=== PATIENT | male | born 1950 | race Caucasian/White ===

== ENCOUNTER 2021-11-21 17:28 | Inpatient (IN) | payer MEDICARE ==
[~2021-11-21] VITALS: Ht 180.3 cm; Wt 90.7 kg
[2021-11-21 17:57] LABS: BASOPHILS # (AUTO) 0.1 (0.0-0.1); BASOPHILS % 0.4 % (0.0-1.0); EOSINOPHILS # (AUTO) 0.6 (0.0-0.4); EOSINOPHILS % 2.6 % (0.0-6.0); HEMATOCRIT 43.8 % (38.2-49.6); HEMOGLOBIN 13.9 g/dL (14.0-18.0); LYMPHOCYTES # (AUTO) 1.6 (1.0-3.2); LYMPHOCYTES % 7.2 % (18.0-39.1); MEAN CORPUSCULAR HEMOGLOBIN 31.3 pg (28-32); MEAN CORPUSCULAR HGB CONC 31.7 g/dL (31-35); MEAN CORPUSCULAR VOLUME 98.6 fL (81-99); MONOCYTES # (AUTO) 2.2 (0.2-0.8); MONOCYTES % 10.3 % (4.4-11.3); NEUTROPHILS # (AUTO) 17.2 (2.1-6.9); NEUTROPHILS % 78.7 % (38.7-80.0); PLATELET COUNT 459 x10e3/uL (140-360); RED BLOOD COUNT 4.44 x10e6/uL (4.3-5.7); RED CELL DISTRIBUTION WIDTH 12.1 % (11.7-14.4)
[2021-11-21 18:13] LABS: ALBUMIN 2.7 g/dL (3.5-5.0); ALBUMIN/GLOBULIN RATIO 0.5 (0.8-2.0); ANION GAP 21.1 mmol/L (8-16); CALCIUM 9.3 mg/dL (8.4-10.2); CREATININE, SERUM 1.59 mg/dL (0.72-1.25); POTASSIUM 4.1 mmol/L (3.5-5.1)
[2021-11-21] MEDS ORDERED: SODIUM CHLORIDE 0.9% 1000ML 1,000 ML IV STA (19:09)
[2021-11-21] MEDS ORDERED: ASPIRIN 81 MG CHEW TAB PO ONE (19:15)
[2021-11-21 19:41] LABS: CREATINE KINASE MB 0.5 ng/mL (0-5.0)
[2021-11-21] MEDS ORDERED: Morphine 4mg INJECTION 4 MG/ML INJ IV PRN (20:15)
[2021-11-21] MEDS ORDERED: ONDANSETRON HCL INJ 2MG/ML 2ML 2 MG/ML VIAL IV PRN (20:15)
[2021-11-21] MEDS ORDERED: SODIUM CHLORIDE 0.9% 1000ML 1,000 ML IV ONE (20:30)
[2021-11-21] MEDS ORDERED: ACETAMINOPHEN 325 MG TAB PO ONE (20:30)
[2021-11-21] MEDS ORDERED: ACETAMINOPHEN 325 MG TAB ONE (20:36)
[2021-11-21] MEDS ORDERED: SODIUM CHLORIDE 0.9% 100 ML ONE (22:17)
[2021-11-21] MEDS ORDERED: IOPAMIDOL 370 MG/ML 100 ML INFUS..BTL INJ ONE (22:17)
[2021-11-21] MEDS: SODIUM CHLORIDE 0.9% 1000ML 1,000 ML IV SCH (22:19)
[2021-11-21 23:13] LABS: CLARITY,URINE CLEAR (CLEAR); COLOR,URINE YELLOW (YELLOW); LEUKOCYTE ESTERASE ,URINE NEGATIVE (NEGATIVE)
[2021-11-21 23:14] LABS: KETONES,URINE TRACE (NEGATIVE); NITRITE,URINE NEGATIVE (NEGATIVE); PROTEIN,URINE DIPSTICK 1+ (NEGATIVE)
[2021-11-21 23:17] LABS: BACTERIA,URINE FEW /HPF; EPITHELIAL CELLS,URINE FEW /LPF; RBC,URINE 0-5 /HPF (0-5); WBC,URINE (MAN) 0-5 /HPF (0-5)
[2021-11-21] MEDS ORDERED: ACETAMINOPHEN 325 MG TAB PO PRN (23:45)
[2021-11-22] VITALS (8 sets, daily range): BP systolic 105–134; BP diastolic 63–74
[2021-11-22] MEDS ORDERED: ACETAMINOP325 MG/10 PO (00:17)
[2021-11-22] MEDS ORDERED: AMIODARONE HCL200 MG PO (00:18)
[2021-11-22] MEDS ORDERED: ATORVASTATIN CA20 MG PO (00:19)
[2021-11-22] MEDS ORDERED: ASPIRIN81 MG PO (00:19)
[2021-11-22] MEDS ORDERED: NEURONTIN300 MG PO (00:20)
[2021-11-22] MEDS ORDERED: CLOPIDOGREL75 MG PO (00:20)
[2021-11-22] MEDS ORDERED: ISOSORBIDE MONO30 MG PO (00:20)
[2021-11-22] MEDS ORDERED: LISINOPRIL10 MG PO (00:21)
[2021-11-22] MEDS ORDERED: METOPROLOL SUCC25 MG PO (00:22)
[2021-11-22] MEDS ORDERED: B1 PO (00:22)
[2021-11-22 01:15] LABS: CREATINE KINASE MB 0.6 ng/mL (0-5.0)
[2021-11-22] MEDS: SODIUM CHLORIDE 0.9% 1000ML 1,000 ML IV SCH ×2 (05:28→19:46)
[2021-11-22 05:45] LABS: BASOPHILS # (AUTO) 0.1 (0.0-0.1); BASOPHILS % 0.6 % (0.0-1.0); EOSINOPHILS # (AUTO) 0.7 (0.0-0.4); EOSINOPHILS % 3.7 % (0.0-6.0); HEMATOCRIT 44.2 % (38.2-49.6); HEMOGLOBIN 13.5 g/dL (14.0-18.0); LYMPHOCYTES % 11.1 % (18.0-39.1); MEAN CORPUSCULAR HEMOGLOBIN 31.5 pg (28-32); MEAN CORPUSCULAR HGB CONC 30.5 g/dL (31-35); MONOCYTES % 11.3 % (4.4-11.3); NEUTROPHILS # (AUTO) 12.9 (2.1-6.9); NEUTROPHILS % 72.8 % (38.7-80.0); PLATELET COUNT 329 x10e3/uL (140-360); RED BLOOD COUNT 4.29 x10e6/uL (4.3-5.7); RED CELL DISTRIBUTION WIDTH 12.2 % (11.7-14.4)
[2021-11-22 06:03] LABS: ALBUMIN 2.2 g/dL (3.5-5.0); ALBUMIN/GLOBULIN RATIO 0.5 (0.8-2.0); ANION GAP 17.3 mmol/L (8-16); CALCIUM 8.4 mg/dL (8.4-10.2); CREATININE, SERUM 1.34 mg/dL (0.72-1.25); POTASSIUM 4.3 mmol/L (3.5-5.1)
[2021-11-22 13:05] LABS: CREATINE KINASE MB 0.9 ng/mL (0-5.0)
[2021-11-22] MEDS ORDERED: Vancomycin IV 1 GM in SODIUM CHLORIDE 0.9% 250ML 250 ML IV ONE (13:45)
[2021-11-22 14:33] LABS: THYROID STIMULATING HORMONE 0.321 uIU/mL (0.350-4.940)
[2021-11-22] MEDS: GABAPENTIN 300 MG CAP PO SCH ×2 (15:16→20:10)
[2021-11-22] MEDS: ATORVASTATIN 40 MG TAB PO SCH (15:17)
[2021-11-22] MEDS: METOPROLOL SUCCINATE 25 MG TAB XL PO SCH (15:17)
[2021-11-22] MEDS: CLOPIDOGREL BISULFATE 75 MG TAB PO SCH (15:17)
[2021-11-22] MEDS: AMIODARONE HCL 200 MG TAB PO SCH (15:18)
[2021-11-22] MEDS: ISOSORBIDE MONONITRATE 30 MG TAB CR PO SCH (15:18)
[2021-11-22] MEDS: ENOXAPARIN SOD INJ 40 MG/0.4 ML SYR SC SCH (17:42)
[2021-11-22 20:33] LABS: CREATINE KINASE MB 1.3 ng/mL (0-5.0)
[2021-11-23] VITALS (8 sets, daily range): BP systolic 116–143; BP diastolic 66–79
[2021-11-23] MEDS: SODIUM CHLORIDE 0.9% 1000ML 1,000 ML IV SCH ×3 (00:10→06:43)
[2021-11-23 06:36] LABS: BASOPHILS # (AUTO) 0.1 (0.0-0.1); BASOPHILS % 0.6 % (0.0-1.0); EOSINOPHILS # (AUTO) 0.6 (0.0-0.4); EOSINOPHILS % 3.1 % (0.0-6.0); HEMATOCRIT 33.9 % (38.2-49.6); HEMOGLOBIN 11.2 g/dL (14.0-18.0); LYMPHOCYTES # (AUTO) 1.6 (1.0-3.2); LYMPHOCYTES % 8.5 % (18.0-39.1); MEAN CORPUSCULAR HEMOGLOBIN 31.5 pg (28-32); MEAN CORPUSCULAR VOLUME 95.2 fL (81-99); MONOCYTES % 10.9 % (4.4-11.3); NEUTROPHILS # (AUTO) 14.2 (2.1-6.9); NEUTROPHILS % 76.2 % (38.7-80.0); PLATELET COUNT 353 x10e3/uL (140-360); RED BLOOD COUNT 3.56 x10e6/uL (4.3-5.7); RED CELL DISTRIBUTION WIDTH 12.2 % (11.7-14.4)
[2021-11-23 07:15] LABS: ANION GAP 11.3 mmol/L (8-16); CALCIUM 7.4 mg/dL (8.4-10.2); CREATININE, SERUM 1.09 mg/dL (0.72-1.25); POTASSIUM 4.3 mmol/L (3.5-5.1)
[2021-11-23] MEDS: CEFTRIAXONE 2 GM in SODIUM CHLORIDE 0.9% 100 ML IV SCH (08:45)
[2021-11-23] MEDS: ASPIRIN 81 MG CHEW TAB PO SCH (08:45)
[2021-11-23] MEDS: AMIODARONE HCL 200 MG TAB PO SCH (08:46)
[2021-11-23] MEDS: ATORVASTATIN 40 MG TAB PO SCH (08:46)
[2021-11-23] MEDS: GABAPENTIN 300 MG CAP PO SCH ×3 (08:46→21:35)
[2021-11-23] MEDS: METOPROLOL SUCCINATE 25 MG TAB XL PO SCH (08:47)
[2021-11-23] MEDS: ISOSORBIDE MONONITRATE 30 MG TAB CR PO SCH (08:48)
[2021-11-23] MEDS: CLOPIDOGREL BISULFATE 75 MG TAB PO SCH (08:48)
[2021-11-23] MEDS ORDERED: ISOSORBIDE MONONITRATE 30 MG TAB CR PO SCH (09:00)
[2021-11-23] MEDS ORDERED: METOPROLOL SUCCINATE 25 MG TAB XL PO SCH (09:00)
[2021-11-23] MEDS ORDERED: AMIODARONE HCL 200 MG TAB PO SCH (09:00)
[2021-11-23] MEDS ORDERED: CLOPIDOGREL BISULFATE 75 MG TAB PO SCH (09:00)
[2021-11-23] MEDS ORDERED: ATORVASTATIN 40 MG TAB PO SCH (09:00)
[2021-11-23] MEDS: ACETAMINOPHEN 325 MG/10 ML UDC PO PRN (11:28)
[2021-11-23] MEDS ORDERED: Vancomycin IV 1 GM in SODIUM CHLORIDE 0.9% 250ML 250 ML IV ONE (13:30)
[2021-11-23] MEDS: ENOXAPARIN SOD INJ 40 MG/0.4 ML SYR SC SCH (16:49)
[2021-11-24] VITALS (8 sets, daily range): BP systolic 120–139; BP diastolic 62–77
[2021-11-24 06:15] LABS: BASOPHILS # (AUTO) 0.1 (0.0-0.1); BASOPHILS % 0.6 % (0.0-1.0); EOSINOPHILS # (AUTO) 0.4 (0.0-0.4); EOSINOPHILS % 2.1 % (0.0-6.0); HEMATOCRIT 34.8 % (38.2-49.6); HEMOGLOBIN 11.5 g/dL (14.0-18.0); LYMPHOCYTES # (AUTO) 1.6 (1.0-3.2); LYMPHOCYTES % 8.2 % (18.0-39.1); MEAN CORPUSCULAR HEMOGLOBIN 31.1 pg (28-32); MEAN CORPUSCULAR VOLUME 94.1 fL (81-99); MONOCYTES # (AUTO) 2.1 (0.2-0.8); MONOCYTES % 10.6 % (4.4-11.3); NEUTROPHILS # (AUTO) 15.3 (2.1-6.9); NEUTROPHILS % 77.6 % (38.7-80.0); PLATELET COUNT 386 x10e3/uL (140-360); RED CELL DISTRIBUTION WIDTH 12.2 % (11.7-14.4)
[2021-11-24 08:22] LABS: LYMPHOCYTES % (MANUAL) 6 % (19-48); MONOCYTES % (MANUAL) 8 % (3.4-9.0); NEUTROPHILS % (MANUAL) 86 % (40-74); PLATELET ESTIMATE SLIGHTLY INCREASED; PLATELET MORPHOLOGY COMMENT NORMAL; RBC MORPHOLOGY COMMENT NORMAL
[2021-11-24] MEDS: GABAPENTIN 300 MG CAP PO SCH ×3 (08:35→21:12)
[2021-11-24] MEDS: CEFTRIAXONE 2 GM in SODIUM CHLORIDE 0.9% 100 ML IV SCH (08:35)
[2021-11-24] MEDS: METOPROLOL SUCCINATE 25 MG TAB XL PO SCH (08:35)
[2021-11-24] MEDS: ISOSORBIDE MONONITRATE 30 MG TAB CR PO SCH (08:36)
[2021-11-24] MEDS: AMIODARONE HCL 200 MG TAB PO SCH (08:36)
[2021-11-24] MEDS: CLOPIDOGREL BISULFATE 75 MG TAB PO SCH (08:36)
[2021-11-24] MEDS: ASPIRIN 81 MG CHEW TAB PO SCH (08:36)
[2021-11-24] MEDS: ATORVASTATIN 40 MG TAB PO SCH (08:37)
[2021-11-24] MEDS: Vancomycin IV 1 GM in SODIUM CHLORIDE 0.9% 250ML 250 ML IV SCH ×2 (09:57→21:13)
[2021-11-24] MEDS: ENOXAPARIN SOD INJ 40 MG/0.4 ML SYR SC SCH (17:25)
[2021-11-24] MEDS: ACETAMINOPHEN 325 MG/10 ML UDC PO PRN (21:12)
[2021-11-24] MEDS ORDERED: SODIUM CHLORIDE 0.9% 100 ML ONE (21:34)
[2021-11-25] VITALS (9 sets, daily range): BP systolic 84–140; BP diastolic 65–84
[2021-11-25 05:22] LABS: BASOPHILS # (AUTO) 0.1 (0.0-0.1); BASOPHILS % 0.4 % (0.0-1.0); EOSINOPHILS # (AUTO) 0.6 (0.0-0.4); EOSINOPHILS % 3.2 % (0.0-6.0); HEMATOCRIT 41.5 % (38.2-49.6); HEMOGLOBIN 13.1 g/dL (14.0-18.0); MEAN CORPUSCULAR HEMOGLOBIN 31.3 pg (28-32); MEAN CORPUSCULAR HGB CONC 31.6 g/dL (31-35); MONOCYTES # (AUTO) 2.3 (0.2-0.8); MONOCYTES % 11.9 % (4.4-11.3); NEUTROPHILS # (AUTO) 14.6 (2.1-6.9); NEUTROPHILS % 73.8 % (38.7-80.0); PLATELET COUNT 378 x10e3/uL (140-360); RED BLOOD COUNT 4.19 x10e6/uL (4.3-5.7)
[2021-11-25 05:52] LABS: ANION GAP 14.4 mmol/L (8-16); CALCIUM 8.6 mg/dL (8.4-10.2); CREATININE, SERUM 1.12 mg/dL (0.72-1.25); POTASSIUM 4.4 mmol/L (3.5-5.1)
[2021-11-25] MEDS: CEFTRIAXONE 2 GM in SODIUM CHLORIDE 0.9% 100 ML IV SCH (09:51)
[2021-11-25] MEDS: ASPIRIN 81 MG CHEW TAB PO SCH (09:52)
[2021-11-25] MEDS: GABAPENTIN 300 MG CAP PO SCH ×3 (09:53→21:42)
[2021-11-25] MEDS: ATORVASTATIN 40 MG TAB PO SCH (09:53)
[2021-11-25] MEDS: CLOPIDOGREL BISULFATE 75 MG TAB PO SCH (09:53)
[2021-11-25] MEDS: AMIODARONE HCL 200 MG TAB PO SCH (09:53)
[2021-11-25] MEDS: ISOSORBIDE MONONITRATE 30 MG TAB CR PO SCH (10:01)
[2021-11-25] MEDS: METOPROLOL SUCCINATE 25 MG TAB XL PO SCH (10:01)
[2021-11-25] MEDS: Vancomycin IV 1 GM in SODIUM CHLORIDE 0.9% 250ML 250 ML IV SCH (10:06)
[2021-11-25] MEDS ORDERED: ONDANSETRON HCL 4 MG ORAL DISINTEGRATING TAB PO PRN (12:00)
[2021-11-25] MEDS ORDERED: IOPAMIDOL 370 MG/ML 100 ML INFUS..BTL INJ ONE (12:22)
[2021-11-25] MEDS: ENOXAPARIN SOD INJ 40 MG/0.4 ML SYR SC SCH (17:34)
[2021-11-26] VITALS (8 sets, daily range): BP systolic 112–139; BP diastolic 63–78
[2021-11-26] MEDS: ACETAMINOPHEN 325 MG/10 ML UDC PO PRN (00:03)
[2021-11-26 06:04] LABS: BASOPHILS # (AUTO) 0.1 (0.0-0.1); BASOPHILS % 0.5 % (0.0-1.0); EOSINOPHILS # (AUTO) 0.6 (0.0-0.4); EOSINOPHILS % 3.2 % (0.0-6.0); HEMATOCRIT 35.7 % (38.2-49.6); HEMOGLOBIN 11.3 g/dL (14.0-18.0); LYMPHOCYTES # (AUTO) 1.5 (1.0-3.2); LYMPHOCYTES % 7.6 % (18.0-39.1); MEAN CORPUSCULAR HEMOGLOBIN 31.6 pg (28-32); MEAN CORPUSCULAR HGB CONC 31.7 g/dL (31-35); MEAN CORPUSCULAR VOLUME 99.7 fL (81-99); MONOCYTES # (AUTO) 2.3 (0.2-0.8); MONOCYTES % 11.5 % (4.4-11.3); NEUTROPHILS # (AUTO) 15.2 (2.1-6.9); NEUTROPHILS % 76.3 % (38.7-80.0); PLATELET COUNT 397 x10e3/uL (140-360); RED BLOOD COUNT 3.58 x10e6/uL (4.3-5.7)
[2021-11-26] MEDS: CEFTRIAXONE 2 GM in SODIUM CHLORIDE 0.9% 100 ML IV SCH (09:42)
[2021-11-26] MEDS: ASPIRIN 81 MG CHEW TAB PO SCH (09:43)
[2021-11-26] MEDS: AMIODARONE HCL 200 MG TAB PO SCH (09:44)
[2021-11-26] MEDS: ATORVASTATIN 40 MG TAB PO SCH (09:44)
[2021-11-26] MEDS: ISOSORBIDE MONONITRATE 30 MG TAB CR PO SCH (09:44)
[2021-11-26] MEDS: GABAPENTIN 300 MG CAP PO SCH ×3 (09:44→20:24)
[2021-11-26] MEDS: METOPROLOL SUCCINATE 25 MG TAB XL PO SCH (09:45)
[2021-11-26] MEDS: CLOPIDOGREL BISULFATE 75 MG TAB PO SCH (09:45)
[2021-11-26] MEDS: ENOXAPARIN SOD INJ 40 MG/0.4 ML SYR SC SCH (18:03)
[2021-11-27] VITALS (13 sets, daily range): BP systolic 105–153; BP diastolic 62–84
[2021-11-27] MEDS: ACETAMINOPHEN 325 MG/10 ML UDC PO PRN (01:32)
[2021-11-27 06:53] LABS: BASOPHILS # (AUTO) 0.1 (0.0-0.1); BASOPHILS % 0.6 % (0.0-1.0); EOSINOPHILS # (AUTO) 0.8 (0.0-0.4); EOSINOPHILS % 4.1 % (0.0-6.0); HEMOGLOBIN 11.1 g/dL (14.0-18.0); LYMPHOCYTES # (AUTO) 1.9 (1.0-3.2); LYMPHOCYTES % 10.1 % (18.0-39.1); MEAN CORPUSCULAR HGB CONC 31.7 g/dL (31-35); MEAN CORPUSCULAR VOLUME 97.8 fL (81-99); MONOCYTES # (AUTO) 2.4 (0.2-0.8); MONOCYTES % 12.7 % (4.4-11.3); NEUTROPHILS # (AUTO) 13.5 (2.1-6.9); NEUTROPHILS % 71.7 % (38.7-80.0); PLATELET COUNT 412 x10e3/uL (140-360); RED BLOOD COUNT 3.58 x10e6/uL (4.3-5.7); RED CELL DISTRIBUTION WIDTH 12.2 % (11.7-14.4)
[2021-11-27] MEDS: METOPROLOL SUCCINATE 25 MG TAB XL PO SCH (08:51)
[2021-11-27] MEDS: ISOSORBIDE MONONITRATE 30 MG TAB CR PO SCH (08:52)
[2021-11-27] MEDS: CLOPIDOGREL BISULFATE 75 MG TAB PO SCH (08:52)
[2021-11-27] MEDS: ATORVASTATIN 40 MG TAB PO SCH (08:52)
[2021-11-27] MEDS: GABAPENTIN 300 MG CAP PO SCH ×3 (08:52→20:39)
[2021-11-27] MEDS: ASPIRIN 81 MG CHEW TAB PO SCH (08:53)
[2021-11-27] MEDS: AMIODARONE HCL 200 MG TAB PO SCH (08:53)
[2021-11-27] MEDS: CEFTRIAXONE 2 GM in SODIUM CHLORIDE 0.9% 100 ML IV SCH (08:53)
[2021-11-27] MEDS: ENOXAPARIN SOD INJ 40 MG/0.4 ML SYR SC SCH (17:01)
[2021-11-27] MEDS ORDERED: SODIUM CHLORIDE 0.9% 250ML 250 ML ONE (20:49)
[2021-11-28] VITALS (7 sets, daily range): BP systolic 93–127; BP diastolic 58–74
[2021-11-28] MEDS: CEFTRIAXONE 2 GM in SODIUM CHLORIDE 0.9% 100 ML IV SCH (10:02)
[2021-11-28] MEDS: GABAPENTIN 300 MG CAP PO SCH ×2 (10:04→14:23)
[2021-11-28] MEDS: ASPIRIN 81 MG CHEW TAB PO SCH (10:04)
[2021-11-28] MEDS: METOPROLOL SUCCINATE 25 MG TAB XL PO SCH (10:04)
[2021-11-28] MEDS: ISOSORBIDE MONONITRATE 30 MG TAB CR PO SCH (10:04)
[2021-11-28] MEDS: ATORVASTATIN 40 MG TAB PO SCH (10:04)
[2021-11-28] MEDS: ACETAMINOPHEN 325 MG/10 ML UDC PO PRN (10:05)
[2021-11-28] MEDS: CLOPIDOGREL BISULFATE 75 MG TAB PO SCH (10:05)
[2021-11-28] MEDS: AMIODARONE HCL 200 MG TAB PO SCH (10:05)
[2021-11-28 16:01] LABS: HIV 1&2 AB SCREEN NON-REACTIVE (NONREACTIVE)
[2021-11-28] MEDS: ENOXAPARIN SOD INJ 40 MG/0.4 ML SYR SC SCH (18:05)
[2021-11-29] VITALS (8 sets, daily range): BP systolic 108–138; BP diastolic 60–76
[2021-11-29] MEDS: ACETAMINOPHEN 325 MG/10 ML UDC PO PRN (01:40)
[2021-11-29 05:54] LABS: BASOPHILS # (AUTO) 0.2 (0.0-0.1); BASOPHILS % 0.8 % (0.0-1.0); EOSINOPHILS # (AUTO) 0.7 (0.0-0.4); EOSINOPHILS % 3.2 % (0.0-6.0); HEMATOCRIT 36.4 % (38.2-49.6); HEMOGLOBIN 11.4 g/dL (14.0-18.0); LYMPHOCYTES # (AUTO) 1.6 (1.0-3.2); LYMPHOCYTES % 7.8 % (18.0-39.1); MEAN CORPUSCULAR HEMOGLOBIN 30.8 pg (28-32); MEAN CORPUSCULAR HGB CONC 31.3 g/dL (31-35); MEAN CORPUSCULAR VOLUME 98.4 fL (81-99); MONOCYTES # (AUTO) 2.1 (0.2-0.8); MONOCYTES % 10.3 % (4.4-11.3); NEUTROPHILS % 76.9 % (38.7-80.0); PLATELET COUNT 440 x10e3/uL (140-360); RED CELL DISTRIBUTION WIDTH 11.9 % (11.7-14.4)
[2021-11-29] MEDS: AMIODARONE HCL 200 MG TAB PO SCH (10:08)
[2021-11-29] MEDS: ISOSORBIDE MONONITRATE 30 MG TAB CR PO SCH (10:08)
[2021-11-29] MEDS: ASPIRIN 81 MG CHEW TAB PO SCH (10:09)
[2021-11-29] MEDS: ATORVASTATIN 40 MG TAB PO SCH (10:10)
[2021-11-29] MEDS: METOPROLOL SUCCINATE 25 MG TAB XL PO SCH (10:10)
[2021-11-29] MEDS: CLOPIDOGREL BISULFATE 75 MG TAB PO SCH (10:10)
[2021-11-29] MEDS: GABAPENTIN 300 MG CAP PO SCH ×2 (14:56→21:12)
[2021-11-29] MEDS: CELECOXIB 200 MG CAP PO SCH (18:45)
[2021-11-30] VITALS (8 sets, daily range): BP systolic 103–131; BP diastolic 64–80
[2021-11-30 07:16] LABS: BASOPHILS # (AUTO) 0.1 (0.0-0.1); BASOPHILS % 0.7 % (0.0-1.0); EOSINOPHILS # (AUTO) 0.9 (0.0-0.4); EOSINOPHILS % 4.5 % (0.0-6.0); HEMATOCRIT 36.9 % (38.2-49.6); HEMOGLOBIN 12.2 g/dL (14.0-18.0); LYMPHOCYTES # (AUTO) 1.8 (1.0-3.2); LYMPHOCYTES % 9.2 % (18.0-39.1); MEAN CORPUSCULAR HEMOGLOBIN 30.8 pg (28-32); MEAN CORPUSCULAR HGB CONC 33.1 g/dL (31-35); MEAN CORPUSCULAR VOLUME 93.2 fL (81-99); MONOCYTES # (AUTO) 1.9 (0.2-0.8); MONOCYTES % 9.7 % (4.4-11.3); NEUTROPHILS # (AUTO) 14.9 (2.1-6.9); NEUTROPHILS % 74.9 % (38.7-80.0); PLATELET COUNT 461 x10e3/uL (140-360); RED BLOOD COUNT 3.96 x10e6/uL (4.3-5.7)
[2021-11-30 07:54] LABS: ALBUMIN 1.7 g/dL (3.5-5.0); ALBUMIN/GLOBULIN RATIO 0.4 (0.8-2.0); ANION GAP 12.7 mmol/L (8-16); CALCIUM 8.3 mg/dL (8.4-10.2); CREATININE, SERUM 0.85 mg/dL (0.72-1.25); POTASSIUM 4.7 mmol/L (3.5-5.1)
[2021-11-30] MEDS: GABAPENTIN 300 MG CAP PO SCH (09:00)
[2021-11-30] MEDS: CLOPIDOGREL BISULFATE 75 MG TAB PO SCH (09:00)
[2021-11-30] MEDS: ATORVASTATIN 40 MG TAB PO SCH (09:59)
[2021-11-30] MEDS: AMIODARONE HCL 200 MG TAB PO SCH (10:00)
[2021-11-30] MEDS: CELECOXIB 200 MG CAP PO SCH ×2 (10:01→17:00)
[2021-11-30] MEDS: METOPROLOL SUCCINATE 25 MG TAB XL PO SCH (10:01)
[2021-11-30] MEDS: ASPIRIN 81 MG CHEW TAB PO SCH (10:02)
[2021-11-30] MEDS: ISOSORBIDE MONONITRATE 30 MG TAB CR PO SCH (10:03)
[2021-12-01] VITALS (7 sets, daily range): BP systolic 113–128; BP diastolic 68–80
[2021-12-01] MEDS: METOPROLOL SUCCINATE 25 MG TAB XL PO SCH (09:59)
[2021-12-01] MEDS: ISOSORBIDE MONONITRATE 30 MG TAB CR PO SCH (10:00)
[2021-12-01] MEDS: CELECOXIB 200 MG CAP PO SCH ×2 (10:00→16:30)
[2021-12-01] MEDS: AMIODARONE HCL 200 MG TAB PO SCH (10:00)
[2021-12-01] MEDS: ASPIRIN 81 MG CHEW TAB PO SCH (10:01)
[2021-12-01] MEDS: ATORVASTATIN 40 MG TAB PO SCH (10:02)
[2021-12-01] MEDS: CLOPIDOGREL BISULFATE 75 MG TAB PO SCH (10:02)
[2021-12-01 13:25] LABS: BASOPHILS # (AUTO) 0.1 (0.0-0.1); BASOPHILS % 0.6 % (0.0-1.0); EOSINOPHILS # (AUTO) 0.6 (0.0-0.4); HEMATOCRIT 37.1 % (38.2-49.6); HEMOGLOBIN 12.2 g/dL (14.0-18.0); LYMPHOCYTES # (AUTO) 1.6 (1.0-3.2); LYMPHOCYTES % 8.3 % (18.0-39.1); MEAN CORPUSCULAR HEMOGLOBIN 30.8 pg (28-32); MEAN CORPUSCULAR HGB CONC 32.9 g/dL (31-35); MEAN CORPUSCULAR VOLUME 93.7 fL (81-99); MONOCYTES # (AUTO) 1.3 (0.2-0.8); NEUTROPHILS # (AUTO) 15.3 (2.1-6.9); PLATELET COUNT 476 x10e3/uL (140-360); RED BLOOD COUNT 3.96 x10e6/uL (4.3-5.7); RED CELL DISTRIBUTION WIDTH 12.4 % (11.7-14.4)
[2021-12-02] VITALS: BP 99/83
[2021-12-02 04:00] VITALS: BP 132/77
[2021-12-02 06:06] LABS: BASOPHILS # (AUTO) 0.1 (0.0-0.1); BASOPHILS % 0.6 % (0.0-1.0); EOSINOPHILS # (AUTO) 0.8 (0.0-0.4); EOSINOPHILS % 4.6 % (0.0-6.0); HEMATOCRIT 39.4 % (38.2-49.6); HEMOGLOBIN 12.4 g/dL (14.0-18.0); LYMPHOCYTES # (AUTO) 1.6 (1.0-3.2); LYMPHOCYTES % 9.5 % (18.0-39.1); MEAN CORPUSCULAR HGB CONC 31.5 g/dL (31-35); MEAN CORPUSCULAR VOLUME 98.5 fL (81-99); MONOCYTES # (AUTO) 1.6 (0.2-0.8); MONOCYTES % 9.3 % (4.4-11.3); NEUTROPHILS # (AUTO) 12.7 (2.1-6.9); NEUTROPHILS % 75.1 % (38.7-80.0); PLATELET COUNT 532 x10e3/uL (140-360); RED CELL DISTRIBUTION WIDTH 12.1 % (11.7-14.4)
[2021-12-02 08:30] VITALS: BP 127/83
[2021-12-02 08:44] VITALS: BP 127/83
[2021-12-02] MEDS: CLOPIDOGREL BISULFATE 75 MG TAB PO SCH (09:07)
[2021-12-02] MEDS: CELECOXIB 200 MG CAP PO SCH (09:07)
[2021-12-02] MEDS: ASPIRIN 81 MG CHEW TAB PO SCH (09:07)
[2021-12-02] MEDS: ISOSORBIDE MONONITRATE 30 MG TAB CR PO SCH (09:08)
[2021-12-02] MEDS: AMIODARONE HCL 200 MG TAB PO SCH (09:08)
[2021-12-02] MEDS: METOPROLOL SUCCINATE 25 MG TAB XL PO SCH (09:09)
[2021-12-02] MEDS: ATORVASTATIN 40 MG TAB PO SCH (09:09)
[2021-12-02] MEDS ORDERED: Celecoxib PO (10:09)
[2021-12-02] MEDS ORDERED: LORATADINE 10 MG TAB PO SCH (11:00)
[2021-12-02] MEDS ORDERED: LORATADINE/PSEUDOEPHEDRINE 24 HR SR TAB PO SCH (11:30)
[2021-12-02] MEDS ORDERED: FLUTICASONE PROPIONATE NASAL SPRAY NS SCH (11:30)
[2021-12-02 11:35] VITALS: BP 123/70
[2021-12-02] MEDS ORDERED: CELEBREX200 MG PO (13:51)
== END 2021-12-02 11:54 | disposition home or self-care (01) | DRG 864 ==
LOC: ER 17:34 → ERHOLD 20:03 → MED/SURG3 23:55
PROVIDERS: ADMIT Internal Medicine; ATTEND Internal Medicine
DX: R50.2 Drug induced fever (principal); N17.9 Acute kidney failure, unspecified; I48.20 Chronic atrial fibrillation, unspecified; I48.91 Unspecified atrial fibrillation; Z79.01 Long term (current) use of anticoagulants; E78.00 Pure hypercholesterolemia, unspecified; I25.10 Atherosclerotic heart disease of native coronary artery without angina pectoris; Z95.5 Presence of coronary angioplasty implant and graft; I25.2 Old myocardial infarction; M25.552 Pain in left hip; M25.551 Pain in right hip; T42.6X5A Adverse effect of other antiepileptic and sedative-hypnotic drugs, initial encounter; D72.829 Elevated white blood cell count, unspecified; Z20.822 Contact with and (suspected) exposure to COVID-19; I12.9 Hypertensive chronic kidney disease with stage 1 through stage 4 chronic kidney disease, or unspecified chronic kidney disease; N18.30 Chronic kidney disease, stage 3 unspecified; N18.9 Chronic kidney disease, unspecified
CPT/HCPCS: 36415; 71045; 71260; 74177; 78802; 80048; 80053; 81001; 82150; 82550; 82553; 82607; 83605; 83690; 83880; 84436; 84443; 84479; 84484; 84550; 85025; 86039; 86140; 86431; 87040; 87071; 87186; 87205; 87390; 87400; 87536; 88184; 93005; 99251; 99284; A9570; G0433; G0435; J0696; J1650; J2543; J3370; J7030; J7050; Q9967